=== PATIENT | female | born 1995 | race African-American/Black ===

== ENCOUNTER 2020-06-30 17:18 | Inpatient (IN) | payer SELFPAY ==
[2020-06-30] VITALS (65 sets, daily range): BP systolic 50–131; BP diastolic 14–106; PULSE 51–111; RESP 18–20; TEMP 36.3–36.5; O2SAT 96–100; BMI 35.1
[2020-06-30 17:50] LABS: Basophils Percent Auto 0.2 % (0.2-1.2); Eosinophils Percent Auto 0.3 % (0-4.4); Hemoglobin 11.8 g/dL (12.0-15.0); Immature Granulocyte Absolute 0.06 K/mm3 (0.00-0.031); Immature Granulocyte Percent A 0.7 % (0-0.5); Lymphocytes Absolute Auto 2.65 K/mm3 (0.9-3.2); Lymphocytes Percent Auto 28.8 % (18.3-44.2); Mean Corpuscular HGB Conc 32.8 g/dl (32-36); Mean Corpuscular Hemoglobin 26.6 pg (26-34); Mean Corpuscular Volume 81.3 fl (80-100); Mean Platelet Volume 10.6 fl (7.4-10.4); Monocytes Absolute Auto 0.8 K/mm3 (0.1-0.6); Monocytes Percent Auto 8.5 % (2.6-8.5); Neutrophils Absolute Auto 5.7 K/mm3 (1.3-6.7); Neutrophils Percent Auto 61.5 % (45.5-73.1); Platelet Count Result 250 k/mm3 (150-375); Red Blood Count 4.43 M/mm3 (4.2-5.4); Red Cell Distribution Width 12.7 % (11.5-14.5); White Blood Count 9.2 K/mm3 (4.5-10.0)
--- NOTE | 2020-06-30 17:50 | LDADM ---
This patient, Gildardo June, was admitted to Labor/Delivery/Recovery 105 on 06/30/20 at 17:18. Plans for labor, pain management and were discussed with patient. Patient/family oriented to hospital policies and general routines including ID bracelet, bed and alarms, visiting hours, pain management, procedures, bathroom and other care routines, personal items, smoking policy, room service/diet and guest tray routines, security routines, and visiting hours. Patient/Family are encouraged to report perceived risks to care and to ask questions if they do not understand what they are told or what they should do. See OBIX for further documentation.
--- NOTE | 2020-06-30 17:55 | WPDOBADMIT ---
Obstetrics - Admit Note Admission Note: 25 y/o @ 38w5d here for induction d/t finding meconium vs vernix on ultrasound in the office today. record reviewed. No pertinent additions to the history and/or any subsequent changes in the physical findings that are not consistent with the expected course of the were found. Additions to the history and/or subsequent changes in the physical findings follow. None.
[2020-06-30] MEDS: OXYTOCIN 30 UNITS/NS 500 ML 30 UNITS/500 ML BAG IV CONT (18:05)
[2020-06-30] MEDS: LACTATED RINGERS 1,000 ML 125 ML IV CONT ×2 (18:05→21:45)
--- NOTE | 2020-06-30 18:19 | PM.OBPNLAB ---
Pain Control Date/time seen: 06/30/20 18:19 Cervix 2-3/60/-3 AROM small amount of clear fluid
[2020-06-30 18:58] LABS: Amphetamine Screen Urine Negative (Negative); Barbiturate Screen Urine Negative (Negative); Benzodiazepines Screen Urine Negative (Negative); Cannabinoid Screen Urine Negative (Negative); Cocaine Screen Urine Negative (Negative); Methadone Screen Urine Negative (Negative); Opiate Screen Urine Negative (Negative); Phencyclidine Screen Urine Negative (Negative)
--- NOTE | 2020-06-30 20:31 | WPDANESEPP ---
Anes - Eval Pre Procedure Procedure: Labor epidural Date/Time: 06/30/20 20:31 Surgeon: Kassie Preop Diagnosis: Abd pain with contractions Pre Op Diagnosis: IOL Patient Data Age: 25 Gender: F Height: 5 ft 3 in Weight: 90 kg Last Vital Signs Temp 97.6 F 06/30/20 20:04 Pulse 111 H 06/30/20 20:31 Resp 18 06/30/20 20:04 BP 50/14 L 06/30/20 20:31 Allergies Allergy/AdvReac Type Severity Reaction Status Date / Time No Known Allergies Allergy Verified 06/30/20 19:05 Home Medications Medication Instructions Recorded Confirmed Type No Home Medications 06/30/20 06/30/20 History Laboratory Tests 06/30/20 06/30/20 06/30/20 17:42 17:42 17:42 WBC 9.2 K/mm3 K/mm3 (4.5-10.0) RBC 4.43 M/mm3 M/mm3 (4.2-5.4) Hgb 11.8 g/dL L g/dL (12.0-15.0) Hct 36.0 % L % (37.0-47.0) MCV 81.3 fl fl (80-100) MCH 26.6 pg pg (26-34) MCHC 32.8 g/dl g/dl (32-36) RDW 12.7 % % (11.5-14.5) Plt Count 250 k/mm3 k/mm3 (150-375) MPV 10.6 fl H fl (7.4-10.4) Immature Gran % (Auto) 0.7 % H % (0-0.5) Neut % (Auto) 61.5 % % (45.5-73.1) Lymph % (Auto) 28.8 % % (18.3-44.2) [place] % (Auto) 8.5 % % (2.6-8.5) Eos % (Auto) 0.3 % % (0-4.4) Baso % (Auto) 0.2 % % (0.2-1.2) Lymph # (Auto) 2.65 K/mm3 K/mm3 (0.9-3.2) [place] # (Auto) 0.8 K/mm3 H K/mm3 (0.1-0.6) Eos # (Auto) 0.0 K/mm3 K/mm3 (0-0.3) Baso # (Auto) 0.0 K/mm3 K/mm3 (0.0-0.1) Abs Immat Gran (auto) 0.06 K/mm3 H K/mm3 (0.00-0.031) Absolute Neuts (auto) 5.7 K/mm3 K/mm3 (1.3-6.7) Absolute Nucleated RBC 0.0 K/mm3 K/mm3 (0.0-0.012) Nucleated RBC % 0.0 % % (0.0-0.2) Urine Opiates Screen Urine Methadone Screen Ur Barbiturates Screen Ur Phencyclidine Scrn Ur Amphetamine Screen U Benzodiazepines Scrn Urine Cocaine Screen U Cannabinoids Screen RPR Pending Blood Type O Positive Antibody Screen Negative 06/30/20 18:32 WBC RBC Hgb Hct MCV MCH MCHC RDW Plt Count MPV Immature Gran % (Auto) Neut % (Auto) Lymph % (Auto) [place] % (Auto) Eos % (Auto) Baso % (Auto) Lymph # (Auto) [place] # (Auto) Eos # (Auto) Baso # (Auto) Abs Immat Gran (auto) Absolute Neuts (auto) Absolute Nucleated RBC Nucleated RBC % Urine Opiates Screen Negative (Negative) Urine Methadone Screen Negative (Negative) Ur Barbiturates Screen Negative (Negative) Ur Phencyclidine Scrn Negative (Negative) Ur Amphetamine Screen Negative (Negative) U Benzodiazepines Scrn Negative (Negative) Urine Cocaine Screen Negative (Negative) U Cannabinoids Screen Negative (Negative) RPR Blood Type Antibody Screen Patient hx anesthesia problems: none Family hx anesthesia problems: none PMFSH Past Medical History Medical History Overweight (BMI 25.0-29.9) and not yet delivered Social History Social History Smoking status: Never smoker Substance use: never Gender identity (if verbalized by the patient): Female Spiritual care concerns: No Exam Day of Procedure 06/30/20 20:32 Patient weight: overweight Neurological: alert and oriented
[2020-06-30] MEDS: ONDANSETRON INJ 4 MG/2 ML VIAL IV PUSH (22:29)
[2020-07-01] VITALS (13 sets, daily range): BP systolic 60–104; BP diastolic 40–79; PULSE 67–173; RESP 16–18; TEMP 36.2–36.8; O2SAT 98–100
--- NOTE | 2020-07-01 00:06 | PM.OBPRVD ---
OB - Delivery Note Procedure Delivery date: 07/01/20 Procedure: Induction of labor Intrapartal events: None Induction method: per pitocin protocol Delivery monitor: external FHT and external uterine Route of delivery: Laceration Description: Perineal - 1st Degree Quantitative Blood Loss (ml): 108 Anesthesia type: Epidural Baby Date of : 06/30/20 Weeks of gestation at delivery: 38 Weight (pounds): 6 Weight (ounces): 10 presentation: vertex position: Right Occiput Anterior Placenta delivery description: Spontaneous cord vessel description: Nuchal Cord, Loose and Reduced score one minute: 9 score five minutes: 9 Narrative: Delivery per Johana SCHOFIELD. Cord gasses collected and handed off to staff.
--- NOTE | 2020-07-01 02:25 | OBPPTRN ---
Patient transferred to post room # 281 via wheelchair. Support person and infant present. Oriented to unit, room, information board, rooming in, admission packet and security measures. Patient verbalizes understanding.
[2020-07-01] MEDS: BENZOCAINE 20% AER SPR (*SP) 56 GM CAN 1 SPRAY TOPICAL (03:07)
[2020-07-01] MEDS: WITCH HAZEL 40 PADS 1 PAD TOPICAL (03:07)
[2020-07-01] MEDS: IBUPROFEN 600 MG TABLET PO ×3 (03:08→20:15)
[2020-07-01 05:43] LABS: Hepatitis B Surface Antigen Negative (Negative)
[2020-07-01 06:00] LABS: HIV 1/2 Ab P24 Ag Result Negative (Negative); Hepatitis C Virus Antibody Negative (Negative)
--- NOTE | 2020-07-01 07:19 | PM.OBPNVD ---
OB - PN: Subj Subjective Date/time seen: 07/01/20 07:19 Patient comments: no complaints baby status: doing well and bottle feeding well Sharon feeding status: exclusively bottle feeding Narrative: No concerns. E/A/V. Normal lochia. OB - PN: Obj Data Labs CBC & Chem 7: 06/30/20 17:42 Labs: Laboratory Results - last 24 hr 06/30/20 06/30/20 06/30/20 17:42 17:42 18:32 WBC 9.2 RBC 4.43 Hgb 11.8 L Hct 36.0 L MCV 81.3 MCH 26.6 MCHC 32.8 RDW 12.7 Plt Count 250 MPV 10.6 H Immature Gran % (Auto) 0.7 H Neut % (Auto) 61.5 Lymph % (Auto) 28.8 [place] % (Auto) 8.5 Eos % (Auto) 0.3 Baso % (Auto) 0.2 Lymph # (Auto) 2.65 [place] # (Auto) 0.8 H Eos # (Auto) 0.0 Baso # (Auto) 0.0 Abs Immat Gran (auto) 0.06 H Absolute Neuts (auto) 5.7 Absolute Nucleated RBC 0.0 Nucleated RBC % 0.0 Urine Opiates Screen Negative Urine Methadone Screen Negative Ur Barbiturates Screen Negative Ur Phencyclidine Scrn Negative Ur Amphetamine Screen Negative U Benzodiazepines Scrn Negative Urine Cocaine Screen Negative U Cannabinoids Screen Negative Hep Bs Antigen Hepatitis C Ab Screen HIV 1&2 Ab/P24 Ag 4thGn Blood Type O Positive Antibody Screen Negative 07/01/20 04:18 WBC RBC Hgb Hct MCV MCH MCHC RDW Plt Count MPV Immature Gran % (Auto) Neut % (Auto) Lymph % (Auto) [place] % (Auto) Eos % (Auto) Baso % (Auto) Lymph # (Auto) [place] # (Auto) Eos # (Auto) Baso # (Auto) Abs Immat Gran (auto) Absolute Neuts (auto) Absolute Nucleated RBC Nucleated RBC % Urine Opiates Screen Urine Methadone Screen Ur Barbiturates Screen Ur Phencyclidine Scrn Ur Amphetamine Screen U Benzodiazepines Scrn Urine Cocaine Screen U Cannabinoids Screen Hep Bs Antigen Negative Hepatitis C Ab Screen Negative HIV 1&2 Ab/P24 Ag 4thGn Negative Blood Type Antibody Screen OB - PN A/P Plan day: 1 Plan: routine care Comments: Doing well. Home tomorrow. Circ today, discussed and consented. Time Spent With Patient Time: Total time spent is greater than 50% in coordination of care (as documented) at patient's floor/unit and/or counseling patient: Time with patient: less than 15 minutes Exam Narrative: Exam Narrative: NAD abdomen soft, nontender, fundus firm below the umbilicus Extremities nontender, 1+ edema
--- NOTE | 2020-07-01 11:04 | WPDANLDPN2 ---
Anes-Prog Note L&D Date/Time: 07/01/20 11:04 Comfortable throughout: labor and delivery Neuraxial method: epidural Epidural/Spinal procedure site: clean & non-tender Neuro status: Neuro function grossly intact. Cardiovascular status: normal Respiratory status: normal Airway patency: baseline Mental status: baseline Post-Op hydration status: normal Vital Signs: Last Vital Signs Temp 36.2 C L 07/01/20 07:30 Pulse 67 07/01/20 07:30 Resp 16 07/01/20 07:30 BP 101/66 07/01/20 07:30 Pulse Ox 100 07/01/20 07:30 Pain score (VAS): 0 I/O: Intake & Output 06/30/20 07/01/20 07/01/20 23:59 07:59 15:59 Intake Total 1000 Balance 1000 Post-procedural complaints: none Patient feedback: Patient satisfied with anesthetic care.
[2020-07-01] MEDS: ACETAMINOPHEN 325 MG TABLET 650 MG PO (20:15)
[2020-07-02] MEDS: IBUPROFEN 600 MG TABLET PO (04:05)
[2020-07-02 05:35] LABS: Hematocrit 30.8 % (37.0-47.0); Hemoglobin 9.8 g/dL (12.0-15.0)
[2020-07-02 07:30] VITALS: BP 105/64; PULSE 78; RESP 18; TEMP 37.1
[2020-07-02 07:35] LABS: Rapid Plasma Reagin Non-Reactive (NonReactive)
--- NOTE | 2020-07-02 07:50 | PM.OBPNVD ---
OB - PN: Subj Subjective Date/time seen: 07/02/20 07:50 Patient comments: no complaints baby status: doing well OB - PN: Obj Data Labs CBC & Chem 7: 07/02/20 04:27 Labs: Laboratory Results - last 24 hr 06/30/20 07/02/20 17:42 04:27 Hgb 9.8 L Hct 30.8 L RPR Non-reactive OB - PN A/P Plan day: 2 Plan: routine care and discharge home (F/U in 4 weeks) Time Spent With Patient Time: Total time spent is greater than 50% in coordination of care (as documented) at patient's floor/unit and/or counseling patient: Time with patient: less than 15 minutes Review of Systems Review of Systems: All systems reviewed & are unremarkable except as noted in HPI and below Exam Narrative: Exam Narrative: Fundus firm and vaginal flow controlled. No lower ext redness, warmth, or edema. Negative homans. Const: General: comfortable Chest: Breast/axilla inspection: normal inspection of the breasts Resp: Effort & Inspection: normal respiratory effort Cardio: Rate: regular rate GI: GI Palp: Yes Soft to palpation Psych: Appearance: grossly normal Affect: normal affect Attitude: cooperative Thought content: Yes Normal thought content present Judgement: Good judgement present (Psych)
--- NOTE | 2020-07-02 07:51 | P.DS_ITS ---
DS: Admitting Diagnosis Admitting Diagnosis Admitting Diagnosis: MIL DS: Discharge Diagnosis Discharge Diagnosis (1) Vaginal delivery: Code(s): O80 - Encounter for full-term uncomplicated delivery Status: Acute OB - DS: Summary OB Procedures : None OB Procedures Intrapartum: Spontaneous Vag Delivery OB Procedures: : None Time Spent with Patient Time attestation: Total time spent providing and/or coordinating discharge services: DS: Data Data Completed and Pending Labs on day of discharge: Labs from last 24 hours 07/02/20 06/30/20 04:27 17:42 Hgb 9.8 L Hct 30.8 L RPR Non-reactive Discharge Plan Discharge Attending physician on discharge: Monica Polk Discharging Clinician: Monica Polk Patient Disposition: Home, Self-Care Activity: pelvic rest Diet: as tolerated Patient Instructions: Antibiotic Form Stand Alone Forms: General Discharge Information Follow-up/Referrals: Monica Polk CNM [Certified Nurse [employer]] - Discharge Medications: No Action No Home Medications RF: 0 Date of admission: 06/30/20 17:18 Primary Care Provider: UNKNOWN,DOCTOR Admitting Provider: Bishnu Fernando Attending physician on admission: Bishnu Fernando Condition: Stable
[2020-07-02] MEDS: POLYSACCHARIDE IRON COMPLEX 150 MG CAPSULE PO (08:40)
--- NOTE | 2020-07-02 08:45 | PC.NURSE ---
Patient instructed on viewing the discharge video Mother & Baby Care, The First Two Weeks online. Patient was given the opportunity and encouraged to ask questions. Patient verbalized understanding of information shared and has been given the mother/baby guide for home reference.
[2020-07-04 11:25] VITALS: BP 101/61; PULSE 72; RESP 20; TEMP 37; O2SAT 100
== END 2020-07-02 11:55 | disposition home or self-care (01) | DRG 560 ==
LOC: ANHLDR 17:24 → ANHOB2 07-01 02:31
PROVIDERS: Advanced Practice Midwife; Admitting Provider Obstetrics & Gynecology; Visit Provider Obstetrics & Gynecology
DX: O70.0 First degree perineal laceration during delivery (principal); O69.81X0 Labor and delivery complicated by cord around neck, without compression, not applicable or unspecified; Z3A.38 38 weeks gestation of pregnancy; Z37.0 Single live birth
CPT/HCPCS: 36415; 80307; 85014; 85018; 85025; 86592; 86703; 86803; 86850; 86900; 86901; 87340; A9270; G0432; J2405; J2590; J7120